=== PATIENT | male | born 1940 | race Caucasian/White ===

== ENCOUNTER 2022-07-22 19:43 | Inpatient (IN) | payer MEDICARE, OTHER ==
[~2022-07-22] VITALS: Ht 185.4 cm; Wt 113.4 kg
--- NOTE | 2022-07-22 19:58 | NUR ---
Pt is noted alert, responsive as he came from [facility] C/O Chest Pain as he was given 0.4mg SL off Nitro and ASA 324 po by EMT and noted with history off DM, Stroke and COPD. Pt care continue as MD at bedside while awaits orders.
[2022-07-22] MEDS ORDERED: ASPIRIN 81 MG TAB.CHEW PO ONE (20:00)
[2022-07-22] MEDS ORDERED: METO25TA6 PO (20:04)
[2022-07-22] MEDS ORDERED: ALBU18HF2 IH (20:04)
[2022-07-22] MEDS ORDERED: ACET-2154 PO (20:04)
[2022-07-22] MEDS ORDERED: LIDO30AD10 TD (20:04)
[2022-07-22] MEDS ORDERED: CLOP75TA15 PO (20:04)
[2022-07-22] MEDS ORDERED: METF-440 PO (20:04)
[2022-07-22] MEDS ORDERED: FAMO20TA8 PO (20:04)
[2022-07-22] MEDS ORDERED: ATOR80TA PO (20:04)
[2022-07-22 20:12] LABS: HEMATOCRIT 36.5 % (36.7-47.1); MEAN CORPUSCULAR HEMOGLOBIN 30.5 uug (23.8-33.4); MEAN CORPUSCULAR VOLUME 92.1 fL (73.0-96.2); PLATELET COUNT (AUTO) 185 K/uL (152-348)
[2022-07-22] MEDS ORDERED: ASPIRIN 81 MG TAB.CHEW ONE (20:18)
[2022-07-22 20:29] LABS: CARBON DIOXIDE 32 mmol/L (21-32); CHLORIDE 104 mmol/L (98-107); CREATININE 1.1 mg/dL (0.6-1.3); GLUCOSE 140 mg/dL (74-106); POTASSIUM 4.1 mmol/L (3.5-5.1); UREA NITROGEN, BLOOD 19 mg/dL (7-18)
--- NOTE | 2022-07-22 20:30 | NUR ---
Note kevin in ED - 07/22/22 at 2053 by FLAQUITO Pt is noted back from CT. Pt care continue as awaits bed for admission.
--- NOTE | 2022-07-22 20:30 | NUR ---
Pt care continue as ASA 162 PO given as ordered.
[2022-07-22 20:43] LABS: ALANINE AMINOTRANSFERASE 22 U/L (16-63); ALKALINE PHOSPHATASE 75 U/L (50-136); ASPARTATE AMINOTRANSFERASE 15 U/L (15-37); BILIRUBIN,DIRECT 0.1 mg/dL (0.0-0.2); BILIRUBIN,TOTAL 0.5 mg/dL (0.2-1.0); TOTAL PROTEIN, SERUM 6.5 g/dL (6.4-8.2)
--- NOTE | 2022-07-22 21:47 | NUR ---
Pt care continue as consent signed for CTA as ordered.
[2022-07-22] MEDS ORDERED: IOHEXOL 350 100 ML INFUS..BTL ONE (21:55)
[2022-07-22] MEDS ORDERED: IV NORMAL SALINE 250 ML IV ONE (21:55)
[2022-07-22] MEDS ORDERED: SWABABLE VALVE TRANSFER SET EA MC ONE (21:55)
[2022-07-22] MEDS ORDERED: DEXTROSE 50% 50 ML DISP.SYRIN IV PRN (23:30)
[2022-07-22] MEDS ORDERED: ACETAMINOPHEN 325 MG TABLET PO PRN (23:30)
[2022-07-22] MEDS ORDERED: ONDANSETRON 4 MG/2 ML VIAL IV PRN (23:30)
[2022-07-22] MEDS ORDERED: INSULIN REGULAR, HUMAN 300 UNIT/3 ML VIAL SQ PRN (23:30)
--- NOTE | 2022-07-22 23:40 | NUR ---
Pt care continue as he is been admitted to Tele under DR. Morrissey and will be going to Room 316. Try given report to 3rd Floor RN but primary Nurse on break at these hour.
--- NOTE | 2022-07-23 00:27 | NUR ---
Pt care continue as report is given to the 3RD Floor RN .
[2022-07-23 00:40] VITALS: BP 143/53
--- NOTE | 2022-07-23 00:45 | NUR ---
Pt is off the unit to 3rd Floor Room 316 as he is been admitted. Pt care continue.
[2022-07-23] MEDS ORDERED: LIDO30AD10 TP (00:56)
[2022-07-23] MEDS ORDERED: ALBUTEROL SULFATE 2.5 MG/3 ML NEBU IH PRN (01:15)
[2022-07-23 04:00] VITALS: BP 163/82
[2022-07-23] MEDS: BLOOD SUGAR DIAGNOSTIC 1 EACH STRIP VI SCH ×4 (06:37→20:46)
[2022-07-23 07:49] LABS: HEMATOCRIT 38.1 % (36.7-47.1); MEAN CORPUSCULAR HEMOGLOBIN 30.5 uug (23.8-33.4); MEAN CORPUSCULAR VOLUME 92.2 fL (73.0-96.2); PLATELET COUNT (AUTO) 193 K/uL (152-348)
--- NOTE | 2022-07-23 08:11 | NUR ---
RECEIVED PATIENT IN BED AWAKE ALERT AND ORIENTED DENIES CHEST PAIN ON O2 WITH NO SOB TELE IS SR CALL LIGHTS AND PERSONAL BELONGINGS ARE WITHIN EASY REACH MADE COMFORTABLE WILL CONTINUE TO OBSERVE.
[2022-07-23 08:12] LABS: BILIRUBIN,TOTAL 0.6 mg/dL (0.2-1.0); CREATININE 0.9 mg/dL (0.6-1.3); PHOSPHOROUS 4.3 mg/dL (2.5-4.9); POTASSIUM 4.3 mmol/L (3.5-5.1); TOTAL PROTEIN, SERUM 6.5 g/dL (6.4-8.2)
[2022-07-23] MEDS: METOPROLOL TARTRATE 25 MG TABLET PO SCH ×2 (09:06→20:39)
[2022-07-23] MEDS: CLOPIDOGREL 75 MG TABLET PO SCH (09:06)
[2022-07-23] MEDS: ASPIRIN 81 MG TAB.CHEW PO SCH (09:06)
[2022-07-23] MEDS: FLUTICASONE/VILANTEROL 1 EACH BLST.W.DEV INH SCH (09:07)
--- NOTE | 2022-07-23 09:38 | NUR ---
PATIENT SEEN AND EXAMINED BY ABY FERNANDEZ WITH NEW ORDERS STATED TO SCHEDULE PATIENT FOR CARDIAC CTA AT [facility] WILL INFORM THE JOURNEY[facility] ELECTRICIAN
--- NOTE | 2022-07-23 11:00 | NUR ---
PER THE CASE TIE SAWYER PATIENT WILL BE PICKED UP BY AMBULANCE TO [facility] FOR CT ANGIO HEART WITH 3 D IMAGE PATIENT AWARE.
[2022-07-23 11:36] VITALS: BP 125/62
--- NOTE | 2022-07-23 13:30 | NUR ---
[facility] HERE AND PATIENT PICKED UP FOR SCHEDULED CT ANGIO HEART WITH 3 D IMAGE AT [place] ORDERED.
--- NOTE | 2022-07-23 15:12 | NUR ---
PATIENT RETURNED BACK TO HIS ROOM FROM [facility] IN SATISFACTORY CONDITION.
[2022-07-23 15:45] VITALS: BP 148/61
--- NOTE | 2022-07-23 18:47 | NUR ---
PATIENT WALKED UP TO THE NURSES STATION AND DEMANDED THAT HIS HEPLOCK BE REMOVED STATED THAT HE DOES NOT WANT IT ON HIS RIGHT ARM PREFERS THE LEFT.ENCOURAGED HIM TO LEAVE IT WHERE IT IS FOR NOW TO AVOID THE PAIN FROM A NEW ANGIO BEING INSERTED AND HE ADAMANTLY REFUSED SO I REMOVED THE LINE SO HE CURRENTLY HAS NO IV SITE WILL ENDORSE MAY BE HE WILL ALLOW REINSERTION LATER.
[2022-07-23 20:00] VITALS: BP 158/81
[2022-07-23] MEDS ORDERED: ATORVASTATIN 40 MG TABLET PO SCH (21:00)
[2022-07-24] VITALS: BP 135/52
[2022-07-24 04:00] VITALS: BP 138/51
[2022-07-24] MEDS: BLOOD SUGAR DIAGNOSTIC 1 EACH STRIP VI SCH ×2 (05:39→11:55)
[2022-07-24] MEDS: ASPIRIN 81 MG TAB.CHEW PO SCH (08:38)
[2022-07-24] MEDS: CLOPIDOGREL 75 MG TABLET PO SCH (08:39)
[2022-07-24] MEDS: FLUTICASONE/VILANTEROL 1 EACH BLST.W.DEV INH SCH (08:39)
[2022-07-24] MEDS: METOPROLOL TARTRATE 25 MG TABLET PO SCH (08:40)
[2022-07-24 11:31] VITALS: BP 103/67
--- NOTE | 2022-07-24 11:55 | NUR ---
BLOOD SUGAR AT THIS TIME IS 137 WHICH CALLS FOR 2 UNITS OF REGULAR INSULIN PER SLIDING SCALE COVERAGE BUT PATIENT REFUSED STATED THAT HE DOES NOT WANT TO TAKE INSULIN WITH BLOOD SUGAR LESS THAN 150 PATIENTS RIGHT TO REFUSE RESPECTED.
--- NOTE | 2022-07-24 12:20 | NUR ---
DISCHARGE PLANNING BACK TO [facility] TODAY.
--- NOTE | 2022-07-24 14:33 | NUR ---
CALLED [facility] AND REPORT GIVEN TO WENDY FOR CONTINUING CARE PATIENT WILL BE PICKED UP AT 1500 TODAY WENDY AWARE THAT PATIENT HAD CONTRAST ADMINISTRATION ON 07/23 AND METFORMIN MUST BE HELD FOR 48 HOURS AND SHE EXPRESSED UNDERSTANDING.
--- NOTE | 2022-07-24 15:14 | NUR ---
PATIENT DISCHARGED PICKED UP BY [facility] WITH DISCHARGE INSTRUCTIONS AND ALL HIS PERSONAL BELONGINGS IN SATISFACTORY CONDITION.
== END 2022-07-24 15:29 | DRG 394 ==
LOC: ER 19:49 → TELE3 23:10 → EDBD 23:10
PROVIDERS: ADMIT Internal Medicine; ATTEND Internal Medicine
DX: K92.9 Disease of digestive system, unspecified (principal); D68.59 Other primary thrombophilia; R07.89 Other chest pain; E11.9 Type 2 diabetes mellitus without complications; J44.9 Chronic obstructive pulmonary disease, unspecified; Z87.891 Personal history of nicotine dependence; E66.01 Morbid (severe) obesity due to excess calories; Z68.33 Body mass index [BMI] 33.0-33.9, adult; Z59.01 Sheltered homelessness; Z86.73 Personal history of transient ischemic attack (TIA), and cerebral infarction without residual deficits; Z20.822 Contact with and (suspected) exposure to COVID-19; D64.9 Anemia, unspecified; I10 Essential (primary) hypertension; I25.10 Atherosclerotic heart disease of native coronary artery without angina pectoris; Z79.02 Long term (current) use of antithrombotics/antiplatelets; Z79.899 Other long term (current) drug therapy
CPT/HCPCS: 36415; 71045; 71275; 84100; 84484; 85025; 93005; 93307; A4663; G0378; J1815; Q9967